=== PATIENT | male | born 1995 | race Caucasian/White ===

== ENCOUNTER 2025-04-27 12:55 | Outpatient (AMB) | payer OTHER, SELFPAY ==
--- NOTE | 2025-04-27 13:03 | A.OFFPC_ITS ---
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 Intake Note: RECORDS ANALYST CPE/ dermatology referral Head Start Coordinator Required: No Allergies No Known Allergies Allergy (Verified 04/27/25 13:06) Medication List - Last Reconciled 04/27/25 by Amanda Sandoval PA-C No Known Home Meds Tobacco use date assessed: 04/27/25 Dental Screening Dental Screen Date: 04/27/25 Did you have a dental visit in the last 12 months?: No Did you have a dental problem in the last 6 months where you did not have access to dental care?: No Was dental information given to patient?: No HPI RECORDS ANALYST CPE/ dermatology referral HPI Details Pt is a 29 year old male who presents today to [facility]. He reports today that he is scheduled this appointment to get a referral to Dermatology. He denies any significant past medical history. Derm: Reports a bumpy rash on his left forearm. Has been there for a few weeks. No symptoms with this. He has tried clotrimazole which did not help. He also reports thickened, yellow great toenails. He has tried [id number]-[id number] treatments without improvement. He is leaving next week to go to [place] for the winter season. He works at different places all over the country with season changes. 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 He plans to continue traveling but his home base is [place] where he lives with his mother. Fam hx: 2 sisters have hyperparathyroidism, father had RI early 50s, paternal grandfather RI in 40s. [facility] Family History (Updated 04/27/25 @ 13:08 by Joey Martinez MA) Other Alcohol abuse Social History (Updated 04/27/25 @ 13:08 by Joey Martinez MA) Housing: House Alcohol intake: never Patient Tobacco Use Status: Former Tobacco user e-Cigarette/Vaping Use: Never Used Second Hand Smoke Exposure: No service: No Current occupational status: unemployed Current occupational exposures/hazards: No Cognitive needs: No Hearing needs: No Vision needs: No Questionnaire PHQ-9 Over the last 2 weeks, how often have you been bothered by any of the following problems? 1. Little interest or pleasure in doing things: not at all 2. Feeling down, depressed, or hopeless: not at all 3. Trouble falling or staying asleep, or sleeping too much: not at all 4. Feeling tired or having little energy: not at all 5. Poor appetite or overeating: not at all 6. Feeling bad about yourself - or that you are a failure or have let yourself or your family down: not at all 7. Trouble concentrating on things, such as reading the newspaper or watching television: not at all 8. Moving or speaking so slowly that other people could have noticed. Or the opposite - being so fidgety or restless that you have been moving around a lot more than usual: not at all 9. Thoughts that you would be better off or of hurting yourself in some way: not at all Total score: 0 Depression Screening Interpretation: Negative Depression Screening Done: Yes 62214 - PHQ-9 Billing: Yes Source: Developed by Drs. Gigi Nieto, Maureen De Leon, Arie Wilkes and colleagues, with an educational chetna from [employer] ([place]). Thrive Questionnaire I am a: Patient What is your living situation today?: I have a steady place to live Within the past 12 months, did the food you bought not last and you didn't have the money to get more?: Never true Within the past 12 months, did you worry whether your food would run out before you got money to buy more?: Never true Do you have trouble paying for medicines?: No Do you have trouble getting transportation to medical appointments?: No Do you have trouble paying your heating and electricity bill?: No Do you have trouble taking care of your child, family member or friend?: No Do you have trouble with day-to-day activities such as bathing, preparing meals, shopping, managing finances, etc.?: No Are you currently unemployed and looking for a job?: No Are you interested in more education?: No Please select the resources that you would like help with: None Currently or been in a relationship where the following occur: I choose not to answer THRIVE Score: 0 AUDIT C Alcohol Use Questionnaire (AUDIT-C) 1. How often do you have a drink containing alcohol?: Never Total Score: 0 Score Reviewed/Action Taken: Yes CAMILO-7 AMB Questionnaire CAMILO-7 Date CAMILO - 7 assessed: 04/27/25 Feeling nervous, anxious, or on edge: 0 = Not at all Not being able to stop or control worryin = Not at all Worrying too much about different things: 0 = Not at all Trouble relaxin = Not at all Being so restless that it is hard to sit still: 0 = Not at all Becoming easily annoyed or irritable: 0 = Not at all Feeling afraid as if something awful might happen: 0 = Not at all Total CAMILO-7 score (0-4 normal; 5-9 mild; 10-14 moderate; 15-21 severe): 0 Source: Developed by Drs. Gigi Nieto, Maureen De Leon, Arie Wilkes and colleagues, with an educational chetna from [employer] ([place]). CAMILO-7 Assessment Billing CAMILO-7 Assessment Tool: CAMILO-7 Assessment 67405 Physical exam (Primary Care) Vital Signs: Last Vital Signs Temp 98.2 F 04/27/25 13:09 Pulse 62 04/27/25 13:09 Resp 18 04/27/25 13:09 BP 122/68 04/27/25 13:09 Pulse Ox 98 04/27/25 13:09 Oxygen Delivery Method Room Air 04/27/25 13:09 BMI result Body Mass Index 24.2 Tobacco/Smoking Status: Tobacco use Status Tobacco use date assessed 04/27/25 04/27/25 13:11 Patient Tobacco Use Status Former Tobacco user 04/27/25 13:11 e-Cigarette/Vaping Use Never Used 04/27/25 13:11 PHQ-9: PHQ-9 Score PHQ-9: Total score 0 04/27/25 13:05 Depression Screening Interpretation: Negative Currently or been in a relationship where the following occur: I choose not to answer Const Orientation/consciousness: patient oriented x3 HENMT Ears: hearing grossly normal bilaterally and TM's normal bilaterally General nose exam: No nasal polyps present Face and sinus: Yes sinuses nontender Mouth: Normal oral and palatal mucosa present Eyes Pupils: Equal, round and reactive pupils present EOM: EOMs intact bilaterally Neck Neck: Yes full ROM and Yes no lymphadenopathy Thyroid: Thyroid normal Chest Chest palpation & inspection: normal inspection of the chest Resp Auscultation: clear to auscultation bilaterally Cardio Rate: regular rate Rhythm: regular rhythm Heart sounds: S1 normal heart sound present and S2 normal heart sound present Peripheral pulses: Peripheral pulses 2+ throughout GI Other: Soft, nontender Auscultation: normal bowel sounds Rectal Exam - Male: Yes deferred General: Yes no CVA tenderness Back/Spine/Pelvis Other: Nontender Back: no CVA tenderness Skin Other: There is a flesh-colored, papular rash noted on the anterior surface of the left forearm. The bilateral great toenails are thickened and yellow. Neuro General: patient oriented x3, gait normal, CN's II-XI intact bilaterally and deep tendon reflexes 2+ bilaterally Cranial nerves: Yes Equal, round and reactive pupils present Motor exam (neuro): 5/5 motor strength present throughout Sensory Exam: double simultaneous stimulation for sensation normal Coordination: dfslji-[id number] test normal and Romberg test negative Extrem General: Yes normal to inspection and Yes full ROM Psych Affect: normal affect Attitude: cooperative Thought process: Normal thought process present Thought content: Normal thought content present Insight: Good insight present (Psych) Judgement: Good judgement present (Psych) Coding Level of Care Code New Pt Prev Care 18-39yr(05541 Diagnoses Routine general medical examination at a health care facility Z00.00 Onychomycosis B35.1 Dermatitis L30.9 Additional Codes CAMILO-7 Assessment Billing - CAMILO-7 Assessment Tool: CAMILO-7 Assessment 73124 ([id number]) PHQ-9 - 97007 - PHQ-9 Billing: Yes ([id number]) Assessment & Plan Assessment & Plan (1) Routine general medical examination at a health care facility: Code(s): Z00.00 - Encounter for general adult medical examination without abnormal findings Plan: reviewed labs ordered declined flu shot (2) Onychomycosis: Code(s): B35.1 - Tinea unguium Category: Medical Plan: Penlac solution ordered Referral to dermatology (3) Dermatitis: Code(s): L30.9 - Dermatitis, unspecified Category: Medical Plan: We will try triamcinolone cream Advised patient to follow up with dermatology if not improved. Phone number to derm provided today. Orders: Orders Comprehensive [place]. Panel Fast Today B35.1 - Tinea unguium, L30.9 - Dermatitis, unspecified, Z01.89 - Encounter for other specified special examinations TSH reflex Free T4 Today B35.1 - Tinea unguium, L30.9 - Dermatitis, unspecified, Z01.89 - Encounter for other specified special examinations Lipid Panel Today B35.1 - Tinea unguium, L30.9 - Dermatitis, unspecified, Z01.89 - Encounter for other specified special examinations Complete Blood Count Auto Diff Today B35.1 - Tinea unguium, L30.9 - Dermatitis, unspecified, Z01.89 - Encounter for other specified special examinations Referrals Dermatology Referral B35.1 - Tinea unguium, L30.9 - Dermatitis, unspecified Medications: New ciclopirox 8% 1 appl topical DAILY 6.6 mL 2RF 30 weeks triamcinolone acetonide 0.025% 1 appl topical BID 80 grams 0RF
[2025-04-27 13:09] VITALS: BP 122/68; PULSE 62; RESP 18; TEMP 36.8; O2SAT 98; BMI 24.2
--- OUTSIDE RECORDS SUMMARY | 2025-04-27 16:06 | XMS_ITS | Encounter Summary ---
Author Organization [facility] Address [address] [place] [address] Phone Care Team Providers Care Mathematics Improvement Teacher Name Role Phone Dion Collins MD Primary Care Provider [phone] Encounter Details Date Type Department Care Team (Late st Contact Info) Description 06/24/2010 Documentation [facility] [place] Family Medicine [address] [place], [place] [phone] Family Medicine, Physician [address] [place] [address] Social History Tobacco Use Types Packs/Day Years Used Date Smoking Tobacco: Never Assessed Sex and Gender Information Value Date Recorded Sex Assigned at Not on file Legal Sex Male 4:31 PM EDT Gender Identity Not on file Sexual Orientation Not on file documented as of this encounter Plan of Treatment Not on file documented as of this encounter Visit Diagnoses Not on filedocumented in this encounter Care Teams Mathematics Improvement Teacher Relationship Specialty Start Date End Date Dion Collins MD [address] [place] [address] [place] [address] PCP - General 02/13/17 10/21/22 documented as of this encounter
--- OUTSIDE RECORDS SUMMARY | 2025-04-27 16:06 | XMS_ITS | Encounter Summary ---
Author Organization [facility] Address [address] [place] [address] Phone Care Team Providers Care Oil Field Caser Name Role Phone Dion Collins MD Primary Care Provider [phone] Encounter Details Date Type Department Care Team (Late st Contact Info) Description 06/24/[address] [facility] [place] Family Medicine [address] [place], [place] [phone] Family Medicine, Physician [address] [place] [address] Social History Tobacco Use Types Packs/Day Years [...] on filedocumented in this encounter Care Teams Oil Field Caser Relationship Specialty Start Date End Date Dion Collins MD [address] [place] [address] [place] [address] PCP - General 02/13/17 10/21/22 documented as of this encounter
--- OUTSIDE RECORDS SUMMARY | 2025-04-27 16:06 | XMS_ITS | Encounter Summary ---
Author Organization [facility] Address [address] [place] [address] Phone Care Team Providers Care Senior Laboratory Technician Name Role Phone Dion Collins MD Primary Care Provider [phone] Encounter Details Date Type Department Care Team (Late st Contact Info) Description 06/24/2010 Documentation [facility] [place] Family Medicine [address] [place], [place] [phone] Family Medicine, Physician [address] [place] [address] Social History Tobacco Use Types Packs/Day Years [...] on filedocumented in this encounter Care Teams Senior Laboratory Technician Relationship Specialty Start Date End Date Dion Collins MD [address] [place] [address] [place] [address] PCP - General 02/13/17 10/21/22 documented as of this encounter
--- OUTSIDE RECORDS SUMMARY | 2025-04-27 16:06 | XMS_ITS | Encounter Summary ---
Author Organization [facility] Address [address] [place] [address] Phone Care Team Providers Care Resident Inspector Name Role Phone Dion Collins MD Primary Care Provider [phone] Encounter Details Date Type Department Care Team (Late st Contact Info) Description 06/24/2010 [place] [facility] [place] [address] [place], [place] [phone] Family Medicine, Physician [address] [place] [address] Social History Tobacco Use Types Packs/Day Years [...] on filedocumented in this encounter Care Teams Resident Inspector Relationship Specialty Start Date End Date Dion Collins MD [address] [place] [address] [place] [address] PCP - General 02/13/17 10/21/22 documented as of this encounter
--- OUTSIDE RECORDS SUMMARY | 2025-04-27 16:06 | XMS_ITS | Clinical Summary ---
Author Organization [facility] Address [address] [place] [address] Phone Care Team Providers Care Nude Model Name Role Phone Unavailable Primary Care Provider Unavailabl e Immunizations Immunization Administration Dates Next Due DTP 06/06/1998, 7,04/12/1997, 997 DTaP 5 01/13/2001 Hep B, ped/adol 06/27/1997,02/01/1997,1996 Hib (PRP-T) 03/05/1998, 7,04/12/1997, 997 IPV 01/13/2001 Influenza, injectable, trivalent 05/25/2009 Influenza, intranasal, trivalent 06/20/2010 MMR 01/13/2001,12/14/1997 Meningococcal Conj (Menactra) MCV4P 05/25/2009 OPV 06/27/1997,04/12/1997,02/01/1997 Tdap 02/17/2008 Varicella 02/17/2008,12/14/1997 Family History Relation Name Status Comments Father Alive Father: Alive a nd well Maternal Grandfather Materna l grandfather: MVA, Maternal Grandmother Materna l grandmother: , septemecia Mother Alive Mother: Alive a nd well Paternal Grandfather Paterna l grandfather: Myocardial infarction, Paternal Grandmother Alive Paterna l grandmother: Hyperthyroidism Sister 1 Alive Sister: Alive a nd well, Hypoparathyroidism, Hypoparathyroidism, Alive and well Sister 2 Alive Sister: Alive a nd well, Hypoparathyroidism, Hypoparathyroidism, Alive and well Social History Tobacco Use Types Packs/Day Years Used Date Smoking Tobacco: Never Assessed Sex and Gender Information Value Date Recorded Sex Assigned at Not on file Legal Sex Male 4:31 PM EDT Gender Identity Not on file Sexual Orientation Not on file Last Filed Vital Signs Vital Sign Reading Time Taken Comments Blood Pressure 85/60 06/20/2010 12:00 AM EST Pulse - - Temperature 36.3 C (97.3 F) 06/20/2010 12:00 AM EST Respiratory Rate - - Oxygen Saturation - - Inhaled Oxygen Concentration - - Weight 50.3 kg (111 lb) 06/20/2010 12:00 AM EST Height 161.3 cm (5' 3.5 ) 06/20/2010 12:00 AM ES T Body Mass Index 19.35 06/20/2010 12:00 AM EST Plan of Treatment Health Maintenance Due Date Last Done Comments DTaP,Tdap,and Td Vaccines (7 - Td or Tdap) 02/16/2018 02/17/2008, 01/13/2001, 06/06/1998, Additional history exists HPV Vaccines (1 - 3-dose SCDM series) 12/01/2023 Influenza Vaccines (#1) 2025 06/20/2010, 05/25 COVID-19 Vaccine (2024- season) 2025 Hepatitis B Vaccines Completed 06/27/1997, 02/01/1997, 1996 HIB Vaccines Completed 03/05/1998, 06/06, 04/12/1997, Additional history exists IPV Vaccines Completed 01/13/2001, 06/06, 04/12/1997, Additional history exists MMR Vaccines Completed 01/13/2001, 12/14/1997 Varicella Vaccines Completed 02/17/2008, 12/14/1997 Meningococcal Vaccine Aged Out 05/25/2009 No mehul alexandra eligible based on patient's age to complete this topic Hepatitis A Vaccines Aged Out No long er eligible based on patient's age to complete this topic Men B Vaccine Aged Out No longer elig ible based on patient's age to complete this topic Pneumococcal Vaccine Aged Out No long er eligible based on patient's age to complete this topic
--- OUTSIDE RECORDS SUMMARY | 2025-04-27 16:07 | XMS_ITS | Encounter Summary ---
Author Organization [facility] Address [address] [place] [address] Phone Care Team Providers Care Acid Dipper Name Role Phone Dion Collins MD Primary Care Provider [phone] Encounter Details Date Type Department Care Team (Late st Contact Info) Description 02/19/2017 Conversion Encounter [facility] [address] [place] [address] Social History Tobacco Use Types Packs/Day Years [...] on filedocumented in this encounter Care Teams Acid Dipper Relationship Specialty Start Date End Date Dion Collins MD [address] [place] [address] PCP - General 02/13/17 10/21/22 documented as of this encounter
== END 2025-04-27 13:46 | disposition home or self-care (01) ==
LOC: HO.HMCFM 12:55
PROVIDERS: PCP Physician Assistant; Visit Provider Physician Assistant
DX: Z00.00 Encounter for general adult medical examination without abnormal findings (principal); B35.1 Tinea unguium; L30.9 Dermatitis, unspecified

== ENCOUNTER → 2025-04-27 12:55 | Outpatient (BNVA) | payer OTHER, SELFPAY | PROVIDERS: PCP Physician Assistant; Visit Provider Physician Assistant | DX: Z00.00 Encounter for general adult medical examination without abnormal findings (principal); R21 Rash and other nonspecific skin eruption; B35.1 Tinea unguium; L30.9 Dermatitis, unspecified | CPT/HCPCS: 96127; 99385 ==

== ENCOUNTER 2025-04-29 07:55 | Outpatient (REF) | payer OTHER, SELFPAY ==
--- OUTSIDE RECORDS SUMMARY | 2025-04-29 07:59 | XMS_ITS | Encounter Summary ---
Author Organization [facility] Address [address] [place] [address] Phone Care Team Providers Care Cellular Equipment Installer Name Role Phone Dion Collins MD Primary Care Provider [phone] Encounter Details Date Type Department Care Team (Late st Contact Info) Description 06/24/2010 Documentation [facility] [place] Family Medicine [address] [place], [place] [phone] Family Medicine, Physician [address] [place] [address] Social History Tobacco Use Types Packs/Day Years [...] on filedocumented in this encounter Care Teams Cellular Equipment Installer Relationship Specialty Start Date End Date Dion Collins MD [address] [place] [address] [place] [address] PCP - General 02/13/17 10/21/22 documented as of this encounter
--- OUTSIDE RECORDS SUMMARY | 2025-04-29 07:59 | XMS_ITS | Encounter Summary ---
Author Organization [facility] Address [address] [place] [address] Phone Care Team Providers Care Station Jailer Name Role Phone Dion Collins MD Primary Care Provider [phone] Encounter Details Date Type Department Care Team (Late st Contact Info) Description 06/24/2010 Documentation [facility] [place] Family Medicine [address] [place], [place] [phone] Family Medicine, Physician [address] [place] [address] Social History Tobacco Use Types Packs/Day Years [...] on filedocumented in this encounter Care Teams Station Jailer Relationship Specialty Start Date End Date Dion Collins MD [address] [place] [address] [place] [address] PCP - General 02/13/17 10/21/22 documented as of this encounter
--- OUTSIDE RECORDS SUMMARY | 2025-04-29 08:00 | XMS_ITS | Clinical Summary ---
Author Organization [facility] Address [address] [place] [address] Phone Care Team Providers Care Field Captain Name Role Phone Unavailable Primary Care Provider [...]
--- OUTSIDE RECORDS SUMMARY | 2025-04-29 08:00 | XMS_ITS | Encounter Summary ---
Author Organization [facility] Address [address] [place] [address] Phone Care Team Providers Care Senior Account Representative Name Role Phone Dion Collins MD Primary Care Provider [phone] Encounter Details Date Type Department Care Team (Late st Contact Info) Description 06/24/2010 [place] [facility] [place] [address] [place], [place] [phone] Family Medicine, Physician [address] [place] [address] Social History Tobacco Use Types Packs/Day Years [...] filedocumented in this encounter Care Teams Senior Account Representative Relationship Specialty Start Date End Date Dion Collins MD [address] [place] [address] [place] [address] PCP - General 02/13/17 10/21/22 documented as of this encounter
--- OUTSIDE RECORDS SUMMARY | 2025-04-29 08:00 | XMS_ITS | Encounter Summary ---
Author Organization [facility] Address [address] [place] [address] Phone Care Team Providers Care Duralumin Mechanic Name Role Phone Dion Collins MD Primary Care Provider [phone] Encounter Details Date Type Department Care Team (Late st Contact Info) Description 06/24/2010 Documentation [facility] [place] Family Medicine [address] [place], [place] [phone] Family Medicine, Physician [address] [place] [address] Social History Tobacco Use Types Packs/Day Years [...] on filedocumented in this encounter Care Teams Duralumin Mechanic Relationship Specialty Start Date End Date Dion Collins MD [address] [place] [address] [place] [address] PCP - General 02/13/17 10/21/22 documented as of this encounter
--- OUTSIDE RECORDS SUMMARY | 2025-04-29 08:00 | XMS_ITS | Encounter Summary ---
Author Organization [facility] Address [address] [place] [address] Phone Care Team Providers Care Row Boss Name Role Phone Dion Collins MD Primary Care Provider [phone] Encounter Details Date Type Department Care Team (Late st Contact Info) Description 02/19/2017 Conversion Encounter [facility] [address] [place] [address] Social History Tobacco Use Types Packs/Day Years [...] on filedocumented in this encounter Care Teams Row Boss Relationship Specialty Start Date End Date Dion Collins MD [address] [place] [address] PCP - General 02/13/17 10/21/22 documented as of this encounter
== END 2025-04-29 07:56 | disposition home or self-care (01) ==
LOC: HO.HMGCLDS 07:55
PROVIDERS: PCP Physician Assistant; Visit Provider Physician Assistant
DX: Z13.89 Encounter for screening for other disorder (principal)